=== PATIENT | female | born 1955 | race Caucasian/White ===

== ENCOUNTER 2021-07-13 14:15 | Emergency (ER) | payer OTHER ==
[~2021-07-13] VITALS: Ht 167.6 cm; Wt 64.4 kg
== END 2021-07-13 16:33 | disposition home or self-care (01) ==
LOC: FER 14:15
DX: S50.12XA Contusion of left forearm, initial encounter (principal); S70.312A Abrasion, left thigh, initial encounter; M25.562 Pain in left knee; M25.561 Pain in right knee; Z23 Encounter for immunization; V49.50XA Passenger injured in collision with unspecified motor vehicles in traffic accident, initial encounter
CPT/HCPCS: 73090; 73564; 90471; 90714; 99283